=== PATIENT | female | born 1945 | race Caucasian/White ===

== ENCOUNTER 2024-01-28 11:49 | Emergency (ER) | payer MEDICARE, SELFPAY ==
[2024-01-28 11:59] VITALS: BP 193/88
--- NOTE | 2024-01-28 12:06 | ED.GENMED ---
ED Provider Triage
<Elliott Covarrubias PA-C - Last Filed: 01/28/24 12:07>
-
Patient seen by provider in Triage?: Seen in Triage
78-year-old female sent in by rheumatology office for elevated blood pressure headaches and dizziness. Blood pressure was 210/112 in the office. She does have a history of high blood pressure. She notes ongoing headaches and dizziness but denies
chest pain.
She is hypertensive at triage. Looks stable otherwise. Basic labs EKG and CT of head ordered
Patient received medical screening assessment through triage by healthcare provider but warrants further assessment
History of Present Illness
<Elliott Covarrubias PA-C - Last Filed: 01/28/24 12:07>
General
Chief Complaint: Blood Pressure Problem
Time Seen by Provider: 01/28/24 15:04
<Mono Danielson Jr., PA-C - Last Filed: 01/28/24 16:49>
General
Source: patient
Exam Limitations: none
Nursing documentation reviewed up to this point in time: agreed with
History of Present Illness
History of Present Illness:
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 Does take
her blood pressure medication. She claims that she has had some vague headaches for many years has had some ongoing left-sided headache over the past 3 weeks described as achy denies any significant neurologic symptoms denies any headache currently
here in the ER. Also has had some room spinning dizziness she does get occasionally has had it in the past when she was diagnosed with benign paroxysmal positional vertigo. The episode that she has been somewhat intermittent over the past few days
currently not present no ongoing vertigo at this time. Denies chest pain shortness of breath fevers.
Review of Systems
<Mono Danielson Jr., PA-C - Last Filed: 01/28/24 16:49>
Review of Systems
Allergies reviewed?: Yes
All Other Systems: ROS reviewed and negative except as documented in HPI and ROS
Phy Exam
<Mono Danielson Jr., PA-C - Last Filed: 01/28/24 16:49>
Physical Exam
Physical Exam:
GENERAL: Alert , in no apparent distress
EYE: pupils equal and reactive
NECK: Supple, no significant adenopathy.
ENT: o/p clr, mmm.
CARDIAC: Regular rate and rhythm .
LUNGS: Clear breath sounds bilaterally, no acute respiratory distress, no wheezes/rales/rhonchi
ABDOMEN: Soft, without focal tenderness, no r/g, no cvat
NEUROLOGICAL: Alert and oriented, no focal neuro deficits
SKIN: Warm and dry, skin intact.
MUSCULOSKELETAL: No edema, well perfused.
PSYCH: Normal and appropriate interaction.
Course
<Elliott Covarrubias PA-C - Last Filed: 01/28/24 12:07>
Orders/Labs/Results
Orders:
Orders
01/28/24 12:03
Electrocardiogram (*1) Urgent
Reason for Study: Vertigo / Dizzy
EKG- Treatment ONCE
01/28/24 12:04
CT Head W/o Iv Contrast Urgent
Comment:
Reason For Exam: headache, dizzy
01/28/24 12:23
Complete Blood Count/With Diff Urgent
Comprehensive Metabolic Panel Urgent
Abnormal Lab Results
01/28/24
12:23
Absolute Monos (auto) 0.7 H 10^3/uL
(0.1-0.6)
Monocytes % 9.4 H %
(1.7-9.3)
Sodium 131 L mmol/L
(135-145)
Potassium 5.2 H mmol/L
(3.5-5.1)
Chloride 97 L mmol/L
(98-107)
BUN 22 H mg/dl
(7-17)
Glucose 113 H mg/dl
(70-99)
01/28/24 12:23
01/28/24 12:23
Vital Signs
Initial and Last Documented VS:
Initial Vital Signs
Temp Pulse Resp BP Pulse Ox
98.6 F 85 16 193/88 99
01/28/24 11:59 01/28/24 11:59 01/28/24 11:59 01/28/24 11:59 01/28/24 11:59
Last Documented Vital Signs
Temp Pulse Resp BP Pulse Ox
98.6 F 79 16 159/76 97
01/28/24 11:59 01/28/24 14:22 01/28/24 14:22 01/28/24 14:22 01/28/24 14:22
<Mono Danielson Jr., PA-C - Last Filed: 01/28/24 16:49>
Orders/Labs/Results
Orders:
Orders
01/28/24 12:03
Electrocardiogram (*1) Urgent
Reason for Study: Vertigo / Dizzy
EKG- Treatment ONCE
01/28/24 12:04
CT Head W/o Iv Contrast Urgent
Comment:
Reason For Exam: headache, dizzy
01/28/24 12:23
Complete Blood Count/With Diff Urgent
Comprehensive Metabolic Panel Urgent
Abnormal Lab Results
01/28/24
12:23
Absolute Monos (auto) 0.7 H 10^3/uL
(0.1-0.6)
Monocytes % 9.4 H %
(1.7-9.3)
Sodium 131 L mmol/L
(135-145)
Potassium 5.2 H mmol/L
(3.5-5.1)
Chloride 97 L mmol/L
(98-107)
BUN 22 H mg/dl
(7-17)
Glucose 113 H mg/dl
(70-99)
01/28/24 12:23
01/28/24 12:23
Vital Signs
Initial and Last Documented VS:
Initial Vital Signs
Temp Pulse Resp BP Pulse Ox
98.6 F 85 16 193/88 99
01/28/24 11:59 01/28/24 11:59 01/28/24 11:59 01/28/24 11:59 01/28/24 11:59
Last Documented Vital Signs
Temp Pulse Resp BP Pulse Ox
98.6 F 79 16 159/76 97
01/28/24 11:59 01/28/24 14:22 01/28/24 14:22 01/28/24 14:22 01/28/24 14:22
<Mono Danielson Jr., PA-C - Last Filed: 01/28/24 16:49>
MDM/Problems Addressed
MDM/Problems Addressed:
78-year-old female presenting to the emergency department today sent in by her optical instrument assembly supervisor for elevated blood pressure. On arrival here was 193/88 no specific treatment and this dropped to 159/76. Other vital signs are normal. She did mention
headaches for many years specifically some ongoing over the past 3 weeks but none today. Also had some degree of dizziness over the past few days but none currently. Walking steady gait here no focal neurologic symptoms. Head CT was performed
that showed potential chronic findings of the cerebellum as well as the ventricles. Labs without acute abnormalities other than slight abnormalities to the sodium and potassium. This was all discussed with the patient no apparent emergent findings
here Case discussed with will follow-up as an outpatient for incidental findings on CT scan. Return precautions given.
<Mono Danielson Jr., PA-C - Last Filed: 01/28/24 16:49>
*Critical Care Note
Total Time (30-74mins, 75-104mins- exclusive of procedures): Not Applicable
ED Attending Note
<Elliott Covarrubias PA-C - Last Filed: 01/28/24 12:07>
-
Portions of this chart may have been created with voice recognition software.� Occasional wrong word or��sound alike� substitutions may have occurred due to the inherent limitations of voice recognition software.
Discharge Plan
Departure
Patient Disposition: Home (Routine Discharge)
Date of Disposition: 01/28/24
Time of Disposition: 16:18
Patient with high blood pressure during this ER visit?: No
Condition: Good
Covid-19: Not Applicable
Discharge Problem:
High blood pressure, Altered gait
Instructions: High Blood Pressure (DC)
Referrals:
KIRSTIE BUSTOS [Other]
Riley Danielson MD [Active] - Call in 1-3 days for appt
Activity Restrictions/Additional Instructions:
You came to the emergency department today with concerns of elevated blood pressure as an outpatient as well as some ongoing headache and dizziness. Here you have a reassuring assessment and improving blood pressure here in the ER. You had labs
that were generally reassuring without emergent changes there was a very slightly low sodium and slightly elevated potassium level that will only need outpatient monitoring but no specific changes at this time. Additionally you had a head CT that
did not show any acute pathology but potentially chronic changes to the cerebellum. This was discussed with neurology that recommends likely outpatient MRA. Please follow-up with the primary care doctor and neurology for further assessment.
Return to the emergency department any worsening, new or concerning symptoms.
Interventions
Interventions:
*Risk Screen - Suicide Last Done: 01/28/24 11:59
*General Assessment Last Done: 01/28/24 11:59
*Neglect/Abuse Screening Last Done: 01/28/24 15:12
ED- Fall Risk Assessment Last Done: 01/28/24 15:17
*ED COVID-19 Vaccine History Last Done: 01/28/24 11:59
*Nursing Disposition Last Done: 01/28/24 16:38
ED- Cardiac Assessment Last Done: 01/28/24 14:22
ED- Neurological Assessment Last Done: 01/28/24 14:22
ED- Pulmonary Assessment Last Done: 01/28/24 14:22
Discharge Date and Time
Discharge Date/Time: 01/28/24 16:39
Print Language: MALAWIAN
[2024-01-28 12:31] LABS: % Eosinophils 1.8 % (0-6); % Immature Granulocytes 0.3 % (0-0.5); % Lymphocytes 24.6 % (20.5-51.1); % Monocytes 9.4 % (1.7-9.3); % Neutrophils 62.9 % (42.2-75.2); Absolute Basophils 0.1 10^3/uL (0-0.2); Absolute Eosinophils 0.1 10^3/uL (0-0.7); Absolute Lymphocytes 1.8 10^3/uL (1.2-3.4); Absolute Monocytes 0.7 10^3/uL (0.1-0.6); Absolute Neutrophils 4.6 10^3/uL (1.4-6.5); Hematocrit 37.4 % (37.0-47.0); Hemoglobin 13.1 g/dL (12.0-16.0); Mean Corpuscular Hgb 29.7 pg (27.0-31.0); Mean Corpuscular Volume 84.8 fL (81.0-99.0); Mean Platelet Volume 9.7 fL (7.4-10.4); Nucleated Red Blood Cells % 0 %; Platelet Count 229 10^3/uL (130-400); Red Blood Cell Count 4.41 10^6/uL (4.20-5.40); Red Cell Dist. Width 12.4 % (11.5-14.5); White Blood Cell Count 7.3 10^3/uL (4.8-10.8)
[2024-01-28 12:51] LABS: ALT (SGPT) 22 U/L (0-35); AST (SGOT) 31 U/L (14-36); Albumin 4.3 g/dl (3.5-5.0); Alkaline Phosphatase 87 U/L (38-126); Blood Urea Nitrogen 22 mg/dl (7-17); Calcium 9.9 mg/dl (8.4-10.2); Carbon Dioxide 25 mmol/L (22-30); Chloride 97 mmol/L (98-107); Glucose 113 mg/dl (70-99); Potassium 5.2 mmol/L (3.5-5.1); Sodium 131 mmol/L (135-145); Total Bilirubin 0.5 mg/dl (0.2-1.3); Total Protein 7.7 g/dl (6.3-8.2); eGFR > 60.00
[2024-01-28 14:22] VITALS: BP 159/76; BMI 30.3
== END 2024-01-28 16:39 | disposition home or self-care (01) ==
LOC: EMR 11:49
PROVIDERS: Physician Assistant; EMERGENCY PHYSICIAN Student in an Organized Health Care Education/Training Program
DX: R26.9 Unspecified abnormalities of gait and mobility (principal); I10 Essential (primary) hypertension; E03.9 Hypothyroidism, unspecified
CPT/HCPCS: 99285; 70450; 80053; 85025; 93005

== ENCOUNTER → 2024-04-28 10:00 | Outpatient (REF) | payer MEDICARE, SELFPAY | LOC: HWRAD 10:00 | PROVIDERS: ATTENDING PHYSICIAN Internal Medicine Rheumatology; FAMILY PHYSICIAN Student in an Organized Health Care Education/Training Program | DX: M80.00XA Age-related osteoporosis with current pathological fracture, unspecified site, initial encounter for fracture (principal); Z13.820 Encounter for screening for osteoporosis; S22.000A Wedge compression fracture of unspecified thoracic vertebra, initial encounter for closed fracture | CPT/HCPCS: 77080 ==

== ENCOUNTER 2024-06-28 17:54 | Emergency (ER) | payer MEDICARE, SELFPAY ==
[2024-06-28 17:59] VITALS: BP 152/97
[2024-06-28 18:33] VITALS: BMI 30.2
--- NOTE | 2024-06-28 19:46 | ED.GENMED ---
History of Present Illness
General
Chief Complaint: Nose Bleed
Source: patient and family
Time Seen by Provider: 06/28/24 19:34
History of Present Illness
History of Present Illness:
This patient very pleasant 79-year-old female who takes aspirin each day, presents with a nosebleed that started earlier today. It is predominantly from the left nostril. She went to an urgent care, had Afrin applied, and then packing. She notes
a slow bleed since discharge. She denies dizziness, chest pain, shortness of breath, bleeding elsewhere, or other complaints.
Past History
Social History
Tobacco: Non-smoker
Alcohol: None
Drug: None
Living: assisted living
Phy Exam
Physical Exam
Physical Exam:
GENERAL: Alert , in no apparent distress
EYE: pupils equal and reactive
NECK: Supple, no significant adenopathy.
ENT: o/p clr, mmm. R nare without bleed, L nare with partially dislodged packing and slow bleed
CARDIAC: Regular rate and rhythm .
LUNGS: Clear breath sounds bilaterally, no acute respiratory distress, no wheezes/rales/rhonchi
ABDOMEN: Soft, without focal tenderness
NEUROLOGICAL: Alert and oriented, no focal neuro deficits
SKIN: Warm and dry, skin intact.
MUSCULOSKELETAL: No edema, well perfused.
PSYCH: Normal and appropriate interaction.
Course
Orders/Labs/Results
Orders:
Orders
06/28/24 20:37
Acetaminophen with Codeine [Tylenol #3] 1 tablet PO NOW STA
Vital Signs
Initial and Last Documented VS:
Initial Vital Signs
Pulse Resp BP Pulse Ox
79 18 152/97 97
06/28/24 17:59 06/28/24 17:59 06/28/24 17:59 06/28/24 17:59
Last Documented Vital Signs
Pulse Resp BP Pulse Ox
79 18 152/97 97
06/28/24 17:59 06/28/24 17:59 06/28/24 17:59 06/28/24 17:59
Procedures
Nosebleed
Drug treatment: Lidocaine and Neosynephrine
Treatment: local pressure applied and other (5.5 cm rhimorhocket)
Post treatment bleeding: none- good control
Update Note
Update Note:
Patient presents to the Emergency Department with epistaxis
Number and Complexity of Problems Addressed at the Encounter
� Chronic conditions affecting care:
� Acute Exacerbation and/or Progression of Chronic Illness:
� Differential Diagnosis includes:but not limited to ant nosebleed, post nose bleed, coagulopathy, etc etc.
Amount and/or Complexity of Data to be Reviewed and Analyzed
� I performed an independent evaluation of and my interpretation is:
EKG:
CT:
Xrays:
Laboratory Studies:
Other:
� Review of other/old records reveals:
� Clinical information was obtained by an independent historian:
� Prescriptions/Medications Considered but not given:
� Further testing considered but not performed:
Risk of Complications and/or Morbidity or Mortality of Patient Management
� Social determinants of health affecting care:
� Discussion with other providers (PCP, Hospitalists, Consultants, etc):
� Escalation of care including admission/observation vs risk of discharge considered:pt advised not to take nsaids as she has in past until further notice. Upon 5.5 rhinorocket placed, bleedign has stopped. Pt feels fullness in
sinus area. No resp compromise, no sob, etc. No lipt/ongue swellign. No bleedign from R side. D/w pt import of ENT f/u this week and raeosns to rted. Will give short course of t#3 which she has taken in past for discomfort in L elobw that she
has been taking motrin for up to 1000 mg/day.
ED Attending Note
-
Portions of this chart may have been created with voice recognition software.� Occasional wrong word or��sound alike� substitutions may have occurred due to the inherent limitations of voice recognition software.
Discharge Plan
Departure
Patient Disposition: Home (Routine Discharge)
Date of Disposition: 06/28/24
Time of Disposition: 20:54
Patient with high blood pressure during this ER visit?: Yes
Condition: Good
Discharge Problem:
Epistaxis
Instructions: Nosebleeds (DC), BLOOD PRESSURE
Prescriptions:
New
acetaminophen-codeine 300-30 mg tablet
1 tab PO Q12H PRN (Reason: Pain) Qty: 7 0RF
Referrals:
KIRSTIE BUSTOS [Other]
Edgardo Villalobos MD [Active] - Follow up in 2-3 days
Activity Restrictions/Additional Instructions:
IF YOU DEVELOP RECURRENT BLEEDING, FEVER, DIZZINESS, TROUBLE BREATHING, CHEST PAIN, SHORTNESS OF BREATH, OR OTHER WORRISOME SIGNS, PLEASE RETURN TO THE ER IMMEDIATELY!
Interventions
Interventions:
*Risk Screen - Suicide Last Done: 06/28/24 17:59
*General Assessment Last Done: 06/28/24 17:59
*Neglect/Abuse Screening Last Done: 06/28/24 18:33
*ED COVID-19 Vaccine History Last Done: 06/28/24 18:33
ED-EENT Assessment Last Done: 06/28/24 18:33
Discharge Date and Time
Print Language: GERMAN
== END 2024-06-28 20:58 | disposition home or self-care (01) ==
LOC: EMR 17:54
PROVIDERS: EMERGENCY PHYSICIAN Emergency Medicine
DX: R04.0 Epistaxis (principal); Z79.82 Long term (current) use of aspirin
CPT/HCPCS: 99282; 30901